=== PATIENT | female | born 1980 | race Caucasian/White ===

== ENCOUNTER 2016-12-11 10:28 | Emergency (ER) | payer SELFPAY ==
--- NOTE | 2016-12-11 10:54 | ER Document Report ---
ED Medical Screen (RME) - General Chief Complaint: Pain With Urination Stated Complaint: GROIN PAIN Time Seen by Provider: 12/11/16 10:48 Notes: has pain with urination and vaginal sores. Says one same sex partner for last two years with no variance. TRAVEL OUTSIDE OF THE [place] IN LAST 30 DAYS: No - Related Data Allergies/Adverse Reactions: Penicillins Allergy (Verified 12/11/16 10:33) Past Medical History - Social History Frequency of alcohol use: Occasional Drug Abuse: None Renal/ Medical History: Denies: Hx Peritoneal Dialysis GI Medical History: Reports: Hx Ulcer Past Surgical History: Reports: Hx Cholecystectomy - Immunizations Hx Diphtheria, Pertussis, Tetanus Vaccination: Yes Physical Exam - Vital signs Vitals: Temp Pulse Resp BP Pulse Ox 97.7 F 93 14 147/100 H 100 12/11/16 10:32 12/11/16 10:32 12/11/16 10:32 12/11/16 10:32 12/11/16 10:32 Course - Vital Signs Vital signs: Temp Pulse Resp BP Pulse Ox 97.7 F 93 14 147/100 H 100 12/11/16 10:32 12/11/16 10:32 12/11/16 10:32 12/11/16 10:32 12/11/16 10:32
[2016-12-11 11:10] LABS: APPEARANCE,URINE SLIGHTLY-CLOUDY; BILIRUBIN,URINE NEGATIVE (NEGATIVE); GLUCOSE, URINE NEGATIVE (NEGATIVE); KETONES,URINE NEGATIVE (NEGATIVE); LEUKOCYTE ESTERASE,URINE MODERATE (NEGATIVE); NITRITE,URINE NEGATIVE (NEGATIVE); PROTEIN,URINE NEGATIVE (NEGATIVE); URINE SPECIFIC GRAVITY 1.005; UROBILINOGEN,URINE NEGATIVE mg/dL (<2.0)
[2016-12-11] MEDS ORDERED: ACYCLOVIR 200 MG CAPSULE PO ONE (11:44)
[2016-12-11] MEDS ORDERED: HYDROCODONE/ACETAMINOPHEN 5-325 MG 6 TAB/DSPK PO PRN (11:49)
--- NOTE | 2016-12-11 11:53 | ER Document Report ---
ED GI/ - General Chief Complaint: Pain With Urination Stated Complaint: GROIN PAIN Time Seen by Provider: 12/11/16 10:48 Mode of Arrival: Ambulatory Information source: Patient Notes: 36-year-old female presented to ED for painful urination with vaginal sores. She states the pain with urination is because of the vaginal sores. She denies any discharge. She has a same sex partner for the last 2 years. States she has not had any outside encounters over the last 2 years. TRAVEL OUTSIDE OF THE [place] IN LAST 30 DAYS: No - HPI Patient complains to provider of: Vaginal pain, Other - Vaginal pain with urination due to the source. Onset: Other - Several days Quality of pain: Burning Severity at maximum: Moderate Severity in ED: Moderate Pain Level: 4 Vaginal bleeding (Compared to normal period): None Associated symptoms: Other - Burning with urination and sores to the vaginal wall and the perineum around the vaginal area Exacerbated by: Other - Palpation or urination Relieved by: Denies Similar symptoms previously: No Recently seen / treated by doctor: No - Related Data Allergies/Adverse Reactions: Penicillins Allergy (Verified 12/11/16 10:33) Past Medical History - General Information source: Patient - Social History Smoking Status: Current Every Day Smoker Cigarette use (# per day): Yes - Pack per day Chew tobacco use (# tins/day): No Smoking Education Provided: Yes - Less than 2 minutes Frequency of alcohol use: Occasional Drug Abuse: Marijuana Lives with: Family Family History: None. denies: Arthritis, CAD, COPD, CVA, DM, Hyperlipidemia, Hypertension, Malignancy, Thyroid Disfunction Patient has suicidal ideation: No Patient has homicidal ideation: No - Past Medical History Cardiac Medical History: Reports: None Pulmonary Medical History: Reports: None EENT Medical History: Reports: None Neurological Medical History: Reports: None Endocrine Medical History: Reports: None Renal/ Medical History: Reports: None Malignancy Medical History: Reports: None GI Medical History: Reports: Hx Ulcer Musculoskeltal Medical History: Reports None Skin Medical History: Reports None Psychiatric Medical History: Reports: None Traumatic Medical History: Reports: None Infectious Medical History: Reports: None Past Surgical History: Reports: Hx Cholecystectomy - Immunizations Hx Diphtheria, Pertussis, Tetanus Vaccination: Yes Review of Systems - Review of Systems Constitutional: No symptoms reported EENT: No symptoms reported Cardiovascular: No symptoms reported Respiratory: No symptoms reported Gastrointestinal: No symptoms reported Genitourinary: No symptoms reported Female Genitourinary: Other - Lesions to vaginal wall and perineum causing pain with urination Musculoskeletal: No symptoms reported Skin: No symptoms reported Hematologic/Lymphatic: No symptoms reported Neurological/Psychological: No symptoms reported -: Yes All other systems reviewed and negative Physical Exam - Vital signs Vitals: Temp Pulse Resp BP Pulse Ox 97.7 F 93 14 147/100 H 100 12/11/16 10:32 12/11/16 10:32 12/11/16 10:32 12/11/16 10:32 12/11/16 10:32 Interpretation: Normal - General General appearance: Appears well, Alert - HEENT Head: Normocephalic, Atraumatic Eyes: Normal Pupils: PERRL - Respiratory Respiratory status: No respiratory distress Chest status: Nontender Breath sounds: Normal Chest palpation: Normal - Cardiovascular Rhythm: Regular Heart sounds: Normal auscultation Murmur: No - Abdominal Inspection: Normal Distension: No distension Bowel sounds: Normal Tenderness: Nontender Organomegaly: No organomegaly - Genitourinary External exam: Lesions - The vaginal wall internal and external and the perineal area surrounding the vagina - Back Back: Normal, Nontender - Extremities General upper extremity: Normal inspection, Nontender, Normal color, Normal ROM , Normal temperature General lower extremity: Normal inspection, Nontender, Normal color, Normal ROM , Normal temperature, Normal weight bearing. No: Damian's sign - Neurological Neuro grossly intact: Yes Cognition: Normal Orientation: AAOx4 [place] Coma Scale Eye Opening: Spontaneous Skinny Coma Scale Verbal: Oriented Skinny Coma Scale Motor: Obeys Commands [place] Coma Scale Total: 15 Speech: Normal Motor strength normal: LUE, RUE, LLE, RLE Sensory: Normal - Psychological Associated symptoms: Normal affect, Normal mood - Skin Skin Temperature: Warm Skin Moisture: Dry Skin Color: Normal Course - Re-evaluation Re-evalutation: 12/11/16 12:57 Patient treated with acyclovir and given a [place] dispense pack for the discomfort. She was also sent home with a prescription for acyclovir. Patient and her partner was given instructions on genital herpes. - Vital Signs Vital signs: Temp Pulse Resp BP Pulse Ox 97.7 F 75 16 125/92 H 99 12/11/16 11:59 12/11/16 11:59 12/11/16 11:59 12/11/16 11:59 12/11/16 11:59 - Laboratory Laboratory results interpreted by me: 12/11/16 10:52 Urine Blood MODERATE H Ur Leukocyte Esterase MODERATE H Discharge - Discharge Clinical Impression: Genital herpes Qualifiers: Herpes simplex infection site: vulvovaginitis Qualified Code(s): A60.04 - Herpesviral vulvovaginitis Condition: Stable Disposition: HOME, SELF-CARE Instructions: Family Physicians / Practices Additional Instructions: Genital Herpes Your exam suggests that you have a herpes infection. A culture can confirm the diagnosis. Herpes is caused by a virus, and can be transmitted sexually. After the initial infection has healed, the virus often erupts at the same location from time to time. Herpes can be treated with anti-viral medication. The medicine can be used as pills or ointment. It's most effective if started with the first symptoms of the attack. It is not a "cure" -- it simply shortens the length of the illness. If this is not your first attack, the medicine may not help you. In the female, herpes can infect the baby as it passes through the canal, causing a life-threatening disease. You should inform the aviation survival technician that you've had herpes should you (or your spouse) become . Sexual contact should be avoided any time the sores are present, but the virus may be contagious even at other times. The use of condoms may help prevent infection in your partner. Acyclovir Acyclovir (Zovirax) is used to treat infections caused by the Herpes family of viruses. It's available as capsules or ointment. Zovirax is most effective if started at the first sign of the viral outbreak. It can decrease the severity and duration of symptoms. However, it doesn't eliminate the virus from the body completely. If you're prone to repeated outbreaks of herpes, you'll continue to have attacks. Apply ointment with a disposable glove or finger-cot to avoid spreading the virus with your finger. If pills have been prescribed, take them for the full recommended course. Occasionally, mild nausea or headaches may occur. Call the doctor if you develop wheezing, itching, rash, shortness of breath , or lightheadedness. Oral Narcotic Medication You have been given a norco disp pack for pain control. This medication is a narcotic. It's best taken with food, as nausea can result if taken on an empty stomach. Don't operate machinery or drive within six hours of taking this medication. Do not combine this medicine with alcohol, or with any medication which can cause sedation (such as cold tablets or sleeping pills) unless you get permission from the physician. Narcotics tend to cause constipation. If possible, drink plenty of fluids and eat a diet high in fiber and fruits. FOLLOW-UP CARE: If you have been referred to a physician for follow-up care, call the physician s office for an appointment as you were instructed or within the next two days. If you experience worsening or a significant change in your symptoms, notify the physician immediately or return to the Emergency Department at any time for re-evaluation. Prescriptions: Acyclovir [Acyclovir 400 mg Tablet] 400 mg PO TID #30 tablet Forms: Elevated Blood Pressure
[2016-12-11 12:02] VITALS: BP 125/92
== END 2016-12-11 12:02 | disposition home or self-care (01) ==
LOC: ER 10:28
DX: A60.04 Herpesviral vulvovaginitis (principal); R30.9 Painful micturition, unspecified; R10.30 Lower abdominal pain, unspecified; F17.210 Nicotine dependence, cigarettes, uncomplicated
CPT/HCPCS: 81001; 81025; 87086; 87088; 87186; 99283

== ENCOUNTER 2019-02-03 15:43 | Emergency (ER) | payer SELFPAY ==
[2019-02-03] MEDS ORDERED: ONDANSETRON 4 MG TAB.RAPDIS PO ONE (15:59)
--- NOTE | 2019-02-03 15:59 | ER Document Report ---
ED Medical Screen (RME) - General Chief Complaint: Abdominal Pain Stated Complaint: ABDOMINAL PAIN,VOMITING Time Seen by Provider: 02/03/19 15:56 Mode of Arrival: Wheelchair Information source: Patient Notes: 38-year-old female presents to ED for abdominal pain nausea and vomiting with 3 diarrhea stools since this morning. She is alert oriented respirations regular and unlabored speaking in full sentences. She states her pain is sharp at the highest level it can be constant. She states she does smoke marijuana 3 times a week alcohol weekly more than half a pack per day. She states she has had kidney problems no stones just bad infections. Last menstrual cycle was last week. I have greeted and performed a rapid initial assessment of this patient. A comprehensive ED assessment and evaluation of the patient, analysis of test results and completion of medical decision making process will be conducted by an additional ED providers. TRAVEL OUTSIDE OF THE [place] IN LAST 30 DAYS: No - Related Data Allergies/Adverse Reactions: Penicillins Allergy (Verified 12/11/16 10:33) Past Medical History Renal/ Medical History: Denies: Hx Peritoneal Dialysis GI Medical History: Reports: Hx Ulcer Past Surgical History: Reports: Hx Cholecystectomy - Immunizations Hx Diphtheria, Pertussis, Tetanus Vaccination: Yes Physical Exam - Vital signs Vitals: Temp Pulse Resp BP Pulse Ox 97.5 F 83 20 145/96 H 100 02/03/19 15:51 02/03/19 15:51 02/03/19 15:51 02/03/19 15:51 02/03/19 15:51 Course - Vital Signs Vital signs: Temp Pulse Resp BP Pulse Ox 97.5 F 83 20 145/96 H 100 02/03/19 15:51 02/03/19 15:51 02/03/19 15:51 02/03/19 15:51 02/03/19 15:51
[2019-02-03 16:53] LABS: HEMATOCRIT 50.8 % (36.0-47.0); HEMOGLOBIN 17.7 g/dL (12.0-15.5); MEAN CORPUSCULAR HEMOGLOBIN 41.5 pg (27.0-33.4); MEAN CORPUSCULAR HGB CONC 34.9 g/dL (32.0-36.0); PLATELET COUNT 544 10^3/uL (150-450); RED BLOOD COUNT 4.27 10^6/uL (3.72-5.28); RED CELL DISTRIBUTION WIDTH 14.7 % (11.5-14.0); WHITE BLOOD COUNT 13.4 10^3/uL (4.0-10.5)
[2019-02-03 17:14] LABS: ABSOLUTE LYMPHOCYTES# (MANUAL) 1.6 10^3/uL (0.5-4.7); ABSOLUTE MONOCYTES # (MANUAL) 0.8 10^3/uL (0.1-1.4); BAND NEUTROPHILS % (MANUAL) 1 % (3-5); BASOPHILS % (MANUAL) 2 % (0-2); EOSINOPHILS % (MANUAL) 2 % (0-6); LYMPHOCYTES % (MANUAL) 12 % (13-45); MONOCYTES % (MANUAL) 6 % (3-13); SEGMENTED NEUTROPHILS % (MAN) 77 % (42-78); TOTAL CELLS COUNTED 100
[2019-02-03 17:15] LABS: ANISOCYTOSIS SLIGHT; MEAN CORPUSCULAR VOLUME 119 fl (80-97); PLATELET COMMENT INCREASED
[2019-02-03 17:33] LABS: ALKALINE PHOSPHATASE 214 U/L (38-126); ANION GAP 11 (5-19); ASPARTATE AMINO TRANSFERASE 33 U/L (14-36); BILIRUBIN,DIRECT 0.4 mg/dL (0.0-0.4); BILIRUBIN,TOTAL 0.9 mg/dL (0.2-1.3); CALCIUM 9.8 mg/dL (8.4-10.2); CARBON DIOXIDE 25 mmol/L (22-30); CHLORIDE 107 mmol/L (98-107); GLUCOSE 110 mg/dL (75-110); POTASSIUM 4.6 mmol/L (3.6-5.0); TOTAL PROTEIN 7.6 g/dL (6.3-8.2)
[2019-02-03 17:39] LABS: BLOOD UREA NITROGEN < 2 mg/dL (7-20)
[2019-02-03] MEDS ORDERED: METOCLOPRAMIDE HCL INJ/PF 10 MG/2 ML SDV IV ONE (19:01)
[2019-02-03] MEDS ORDERED: FENTANYL CITRATE INJ/PF 100 MCG/2 ML AMPUL IV ONE (19:01)
[2019-02-03] MEDS ORDERED: RINGERS SOLUTION,LACTATED 1,000 ML IV ONE (19:05)
--- NOTE | 2019-02-03 19:05 | ER Document Report ---
ED General - General Chief Complaint: Abdominal Pain Stated Complaint: ABDOMINAL PAIN,VOMITING Time Seen by Provider: 02/03/19 15:56 Primary Care Provider: [facility] [NO LOCAL MD] - Follow up as needed Mode of Arrival: Wheelchair TRAVEL OUTSIDE OF THE [place] IN LAST 30 DAYS: No - HPI Notes: Patient presents with not feeling well having stomach cramps last night developing into worse sharp constant but waxing and waning abdominal pain in her left lower quadrant that migrates to her umbilicus. She is also had several bouts of vomiting nonbloody nonbilious and several soft stools. With no black or red in her stool. She denies any vaginal discharge or concern for vaginal infection or vaginal bleeding at this time. No known medical problems. She does states she smokes recreational marijuana approximately 3 times a week. She denies this ever happening before. She denies any chest pain or shortness of breath no known medical problems and otherwise does not take any medications on a daily basis. - Related Data Allergies/Adverse Reactions: Penicillins Allergy (Verified 12/11/16 10:33) Past Medical History - General Information source: Patient - Social History Smoking Status: Never Smoker Chew tobacco use (# tins/day): No Frequency of alcohol use: Occasional Drug Abuse: Marijuana Family History: None. denies: Arthritis, CAD, COPD, CVA, DM, Hyperlipidemia, Hypertension, Malignancy, Thyroid Disfunction Patient has suicidal ideation: No Patient has homicidal ideation: No Renal/ Medical History: Denies: Hx Peritoneal Dialysis GI Medical History: Reports: Hx Ulcer Past Surgical History: Reports: Hx Cholecystectomy, Hx Oral Surgery - [place] - Immunizations Hx Diphtheria, Pertussis, Tetanus Vaccination: Yes Review of Systems - Review of Systems Constitutional: No symptoms reported EENT: No symptoms reported Cardiovascular: No symptoms reported Respiratory: No symptoms reported Gastrointestinal: See HPI Genitourinary: No symptoms reported Female Genitourinary: No symptoms reported Musculoskeletal: No symptoms reported Skin: No symptoms reported Hematologic/Lymphatic: No symptoms reported Neurological/Psychological: No symptoms reported Physical Exam - Vital signs Vitals: Temp Pulse Resp BP Pulse Ox 97.5 F 83 20 145/96 H 100 02/03/19 15:51 02/03/19 15:51 02/03/19 15:51 02/03/19 15:51 02/03/19 15:51 - General General appearance: Alert In distress: Moderate - HEENT Head: Normocephalic, Atraumatic - Respiratory Respiratory status: No respiratory distress Chest status: Nontender Breath sounds: Normal Chest palpation: Normal - Cardiovascular Rhythm: Regular Heart sounds: Normal auscultation Murmur: No - Abdominal Inspection: Normal Distension: No distension Tenderness: Other - Mild tenderness umbilicus area as well as left lower quadrant - Back Back: Normal, Nontender - Neurological Neuro grossly intact: Yes Cognition: Normal Orientation: AAOx4 Course - Re-evaluation Re-evalutation: 02/03/19 20:07 Patient has mild leukocytosis otherwise within normal limits are nonsignificant. Patient's pain is been controlled with medications. She has not had any vomiting since Reglan administration. CT abdomen shows no acute ab normalities. I discussed with patient that she is having sharp spasming pain with soft stools and vomiting likely has viral gastroenteritis. However, I did provide return precautions if you develop any fevers or worsening symptoms or intractable vomiting to return to emergency department with the next 12 to 24 hours. She will be sent home with supportive care including Bentyl, Percocet, and Reglan. - Vital Signs Vital signs: Temp Pulse Resp BP Pulse Ox 97.4 F 83 20 145/96 H 100 02/03/19 18:39 02/03/19 15:51 02/03/19 15:51 02/03/19 15:51 02/03/19 15:51 - Laboratory Result Diagrams: 02/03/19 16:35 02/03/19 16:35 Laboratory results interpreted by me: 02/03/19 02/03/19 02/03/19 16:35 16:35 18:44 WBC 13.4 H Hgb 17.7 H Hct 50.8 H MCV 119 H MCH 41.5 H RDW 14.7 H Plt Count 544 H Band Neutrophils % 1 L Lymphocytes % (Manual) 12 L Abs Neuts (Manual) 10.5 H Abs Basophils (Manual) 0.3 H BUN < 2 L Alkaline Phosphatase 214 H Urine Ketones TRACE H Discharge - Discharge Clinical Impression: Nausea & vomiting Qualifiers: Vomiting type: unspecified Vomiting Intractability: non-intractable Qualified Code(s): R11.2 - Nausea with vomiting, unspecified Abdominal pain Qualifiers: Abdominal location: lower abdomen, unspecified Qualified Code(s): R10.30 - Lower abdominal pain, unspecified Condition: Good Disposition: HOME, SELF-CARE Instructions: Abdominal Pain ([facility]), Antispasmodics ([facility]), Reglan ([facility]), Vomiting ([facility]) Additional Instructions: If your symptoms worsen you are unable to keep down any fluids or develop any fevers please return the emergency department within the next 12 to 24 hours or sooner. Prescriptions: Dicyclomine HCl [Bentyl 20 mg Tablet] 20 mg PO ASDIR PRN #20 tablet PRN Reason: Oxycodone HCl/Acetaminophen [Percocet 10-325 Mg Tablet] 1 each PO ASDIR PRN #15 tablet PRN Reason: Metoclopramide HCl [Reglan 10 mg Tablet] 1 tab PO ASDIR PRN #15 tablet PRN Reason: [facility]: [facility] [NO [facility]AL MD] - Follow up as needed
[2019-02-03] MEDS ORDERED: MORPHINE SULFATE 10 MG/ML INJ IV ONE (19:46)
--- NOTE | 2019-02-03 19:50 | RADIOLOGY REPORT (SQ) ---
EXAM DESCRIPTION: CT ABD/PELVIS WITH IV ONLY COMPLETED DATE/TIME: 02/03/2019 7:38 pm REASON FOR STUDY: abd pain, umbilicus, LLQ, eval appy, etc COMPARISON: None. TECHNIQUE: CT scan of the abdomen and pelvis performed using helical scanning technique with dynamic intravenous contrast injection. No oral contrast. Images reviewed with lung, soft tissue, and bone w indows. Reconstructed coronal and sagittal MPR images reviewed. Delayed images for evaluation of the urinary system also acquired. All images stored on PACS. All CT scanners at this facility use dose modulation, iterative reconstruction, and/or weight based d osing when appropriate to reduce radiation dose to as low as reasonably achievable (ALARA). [facility]: Dose Right [facility]: CareDose [facility]: Dose Right [facility]: Teradose 4D [facility]: [employer] CONTRAST TYPE AND DOSE: 100 mL Isovue 370- low osmolar. RENAL FUNCTION: GFR > 60. RADIATION DOSE: CT Rad equipment meets quality standard of care and radiation dose reduction techniq ues were employed. CTDIvol: 4.8 - 4.9 mGy. DLP: 502 mGy-cm.. LIMITATIONS: None. FINDINGS: LOWER CHEST: No significant findings. LIVER: Normal size. No enhancing masses. No dilated ducts. SPLEEN: Normal size. No focal lesions. PANCREAS: No masses identified. No significant calcifications. No adjacent inflammation or peripancre atic fluid collections. Pancreatic duct not dilated. GALLBLADDER: No calcified stones. No inflammatory changes to suggest cholecystitis. ADRENAL GLANDS: No significant masses. RIGHT KIDNEY AND URETER: No cysts identified. No solid masses identified. No calcified stones. No hyd ronephrosis or hydroureter. LEFT KIDNEY AND URETER: No cysts identified. No solid masses identified. No calcified stones. No hydr onephrosis or hydroureter. AORTA AND VESSELS: No aneurysm. No dissection. Renal arteries, SMA, celiac without significant stenos is. RETROPERITONEUM: No bulky retroperitoneal adenopathy. BOWEL AND PERITONEAL CAVITY: No obstruction or inflammatory changes. No free fluid. APPENDIX: Normal. PELVIS: Trace free fluid. Unremarkable bladder. ABDOMINAL WALL: No masses. No hernias. BONES: No acute findings. OTHER: No other significant finding. IMPRESSION: NO ACUTE FINDINGS IN THE ABDOMEN OR PELVIS ON CT SCAN WITH IV CONTRAST. TECHNICAL DOCUMENTATION: JOB ID: [id number] Quality ID # [id number]: Final reports with documentation of one or more dose reduction techniques (e.g., Au tomated exposure control, adjustment of the mA and/or kV according to patient size, use of iterative reconstruction technique) 2010 [employer]- All Rights Reserved Reading location - IP/workstation name: [email or web address]
[2019-02-03] MEDS ORDERED: DICYCLOMINE HCL INJ 20 MG/2 ML AMPULE IM ONE (20:11)
[2019-02-03 20:14] LABS: APPEARANCE,URINE SLIGHTLY-CLOUDY; BILIRUBIN,URINE NEGATIVE (NEGATIVE); COLOR,URINE YELLOW; GLUCOSE, URINE NEGATIVE (NEGATIVE); KETONES,URINE TRACE mg/dL (NEGATIVE); PROTEIN,URINE NEGATIVE (NEGATIVE); URINE SPECIFIC GRAVITY 1.013; UROBILINOGEN,URINE NEGATIVE mg/dL (<2.0)
[2019-02-03 20:26] VITALS: BP 128/89
[2019-02-04 08:54] LABS: PATH REVIEW PATHOLOGIST REVIEWED
== END 2019-02-03 20:58 | disposition home or self-care (01) ==
LOC: ER 15:43
DX: R11.2 Nausea with vomiting, unspecified (principal); R10.30 Lower abdominal pain, unspecified; R10.32 Left lower quadrant pain
CPT/HCPCS: 36415; 83690; 84703; 85025; 80053; 81001; 74177; J0500; S0119; J3010; J2765; J2270; J7120

== ENCOUNTER 2019-04-21 11:26 | Emergency (ER) | payer SELFPAY ==
--- NOTE | 2019-04-21 11:53 | ER Document Report ---
ED Medical Screen (RME) - General Chief Complaint: Leg Swelling Stated Complaint: LEG SWELLING Time Seen by Provider: 04/21/19 11:46 Mode of Arrival: Ambulatory Information source: Patient Notes: 38-year-old female with no prior history presents emergency department with complaints of extreme bilateral leg swelling for the past week. Reports she smokes and drinks daily but denies past medical history. Denies recent trip recent antibiotics. Reports last week her boss went on vacation so she spent the week in bed watching Netflix. She reports that her legs started swelling this week to an extreme. She reports when she wakes up with her ankle are swollen but by the end of the day both legs are swollen the thighs are triple their size. She also complains of palpitations shortness of breath. I have greeted and performed a rapid initial assessment of this patient. A comprehensive ED assessment and evaluation of the patient, analysis of test results and completion of the medical decision making process will be conducted by additional ED providers. TRAVEL OUTSIDE OF THE [place] IN LAST 30 DAYS: No - Related Data Allergies/Adverse Reactions: Penicillins Allergy (Verified 12/11/16 10:33) Past Medical History Renal/ Medical History: Denies: Hx Peritoneal Dialysis GI Medical History: Reports: Hx Ulcer Past Surgical History: Reports: Hx Cholecystectomy, Hx Oral Surgery - [place] teeth - Immunizations Hx Diphtheria, Pertussis, Tetanus Vaccination: Yes Physical Exam - Vital signs Vitals: Temp Pulse Resp BP Pulse Ox 97.8 F 108 H 16 113/57 L 99 04/21/19 11:38 04/21/19 11:38 04/21/19 11:38 04/21/19 11:38 04/21/19 11:38 Course - Vital Signs Vital signs: Temp Pulse Resp BP Pulse Ox 97.8 F 108 H 16 113/57 L 99 04/21/19 11:38 04/21/19 11:38 04/21/19 11:38 04/21/19 11:38 04/21/19 11:38
--- NOTE | 2019-04-21 12:47 | RADIOLOGY REPORT (SQ) ---
EXAM DESCRIPTION: CHEST 2 VIEWS COMPLETED DATE/TIME: 04/21/2019 12:30 pm REASON FOR STUDY: palpitations sob COMPARISON: None. EXAM PARAMETERS: NUMBER OF VIEWS: two views TECHNIQUE: Digital Frontal and Lateral radiographic views of the chest acquired. RADIATION DOSE: NA LIMITATIONS: none FINDINGS: LUNGS AND PLEURA: No opacities, masses or pneumothorax. No pleural effusion. MEDIASTINUM AND HILAR STRUCTURES: No masses or contour abnormalities. HEART AND VASCULAR STRUCTURES: Heart normal size. No evidence for failure. BONES: No acute findings. HARDWARE: None in the chest. OTHER: No other significant finding. IMPRESSION: NO ACUTE RADIOGRAPHIC FINDING IN THE CHEST. TECHNICAL DOCUMENTATION: JOB ID: [id number] [employer]- All Rights Reserved Reading location - IP/workstation name: [email or web address]
[2019-04-21 12:49] LABS: ABSOLUTE EOSINOPHILS # (AUTO) 0.2 10^3/uL (0.0-0.6); ABSOLUTE MONOCYTES (AUTO) 1.3 10^3/uL (0.1-1.4); ABSOLUTE NEUT (AUTO) 8.4 10^3/uL (1.7-8.2); BASOPHILS % (AUTO) 0.3 % (0-2); EOSINOPHILS % (AUTO) 1.9 % (0-6); HEMATOCRIT 39.6 % (36.0-47.0); HEMOGLOBIN 13.7 g/dL (12.0-15.5); LYMPHOCYTES % (AUTO) 16.6 % (13-45); MEAN CORPUSCULAR HEMOGLOBIN 42.7 pg (27.0-33.4); MEAN CORPUSCULAR HGB CONC 34.7 g/dL (32.0-36.0); MONOCYTES % (AUTO) 10.9 % (3-13); PLATELET COUNT 434 10^3/uL (150-450); RED BLOOD COUNT 3.22 10^6/uL (3.72-5.28); RED CELL DISTRIBUTION WIDTH 15.7 % (11.5-14.0); SEGMENTED NEUTROPHILS % (AUTO) 70.3 % (42-78); TOTAL CELLS COUNTED % (AUTO) 100 %; WHITE BLOOD COUNT 11.9 10^3/uL (4.0-10.5)
[2019-04-21 13:00] LABS: MEAN CORPUSCULAR VOLUME 123 fl (80-97)
[2019-04-21 13:15] LABS: ALBUMIN 3.4 g/dL (3.5-5.0); ALKALINE PHOSPHATASE 193 U/L (38-126); ANION GAP 11 (5-19); ASPARTATE AMINO TRANSFERASE 43 U/L (14-36); BILIRUBIN,DIRECT 0.4 mg/dL (0.0-0.4); BILIRUBIN,TOTAL 1.3 mg/dL (0.2-1.3); BLOOD UREA NITROGEN 2 mg/dL (7-20); CALCIUM 9.3 mg/dL (8.4-10.2); CARBON DIOXIDE 25 mmol/L (22-30); CHLORIDE 102 mmol/L (98-107); GLUCOSE 96 mg/dL (75-110); TOTAL PROTEIN 6.8 g/dL (6.3-8.2)
[2019-04-21 13:24] LABS: PLATELET CLUMPS PRESENT; PLATELET COMMENT ADEQUATE; POLYCHROMASIA SLIGHT; TOXIC GRANULATION SLIGHT
[2019-04-21 13:30] LABS: ERYTHROCYTE SEDIMENTATION RATE 7 mm/hr (0-20)
[2019-04-21 13:34] LABS: APPEARANCE,URINE CLOUDY; BILIRUBIN,URINE NEGATIVE (NEGATIVE); COLOR,URINE DARK YELLOW; GLUCOSE, URINE NEGATIVE (NEGATIVE); KETONES,URINE NEGATIVE (NEGATIVE); LEUKOCYTE ESTERASE,URINE NEGATIVE (NEGATIVE); NITRITE,URINE NEGATIVE (NEGATIVE); PROTEIN,URINE NEGATIVE (NEGATIVE); URINE SPECIFIC GRAVITY 1.016
--- NOTE | 2019-04-21 14:31 | RADIOLOGY REPORT (SQ) ---
EXAM DESCRIPTION: VENOUS UNILATERAL LOWER COMPLETED DATE/TIME: 04/21/2019 2:20 pm REASON FOR STUDY: nicholas leg swelling l>r COMPARISON: None. TECHNIQUE: Dynamic and static bolden scale and color images acquired of the left leg venous system. Se lected spectral images acquired with additional compression and augmentation maneuvers. The contralat eral common femoral vein and saphenofemoral junction were also imaged. Images stored on PACS. LIMITATIONS: None. FINDINGS: COMMON FEMORAL: Normal phasicity, compression and augmentation. No visualized echogenic ma terial on bolden scale. No defects on color images. FEMORAL: Normal compression and augmentation. No visualized echogenic material on bolden scale. No defe cts on color images. POPLITEAL: Normal compression, augmentation. No visualized echogenic material on bolden scale. No defec ts on color images. CALF VESSELS: Normal compression, augmentation. No visualized echogenic material on bolden scale. No de fects on color images. GSV and SSV: Normal compression, augmentation. No visualized echogenic material on bolden scale. No def ects on color images. ANY DEEP VENOUS INSUFFICIENCY: Not evaluated. ANY EVIDENCE OF POPLITEAL CYST: No. OTHER: No other significant finding. CONTRALATERAL COMMON FEMORAL VEIN AND SAPHENOFEMORAL JUNCTION: Normal phasicity, compression and augmentation. No visualized echogenic material on bolden scale. No de fects on color images. IMPRESSION: NO EVIDENCE DVT OR SVT IN THE LEFT LEG. TECHNICAL DOCUMENTATION: JOB ID: [id number] [employer]- All Rights Reserved Reading location - IP/workstation name: [email or web address]
[2019-04-21] MEDS ORDERED: NORMAL SALINE 1000 ML 1,000 ML IV ONE (14:35)
--- NOTE | 2019-04-21 14:42 | ER Document Report ---
ED General - General Chief Complaint: Leg Swelling Stated Complaint: LEG SWELLING Time Seen by Provider: 04/21/19 11:46 Primary Care Provider: [facility] [Provider Group] - Follow up in 3-5 days FRANK OLGUIN MD [COMMUNITY BASED STAFF] - Follow up in 3-5 days Mode of Arrival: Ambulatory Notes: 38-year-old female presents with bilateral lower leg swelling mostly on left, heart racing, and shortness of breath for the past week. Patient states her leg swelling is worse when she is at work and she has been on her feet all day. Patient states it is better with elevating her legs. Patient states for the last week she has been at home watching [employer] due to her boss being at a convention. Patient works in construction. Patient denies any past medical history of anything. Patient denies any recent long distance travel, recent hospitalizations, recent surgeries, control/estrogen use, personal history of cancer. Patient states she also had one episode of dizziness with it. Patient also states the back of her left calf feels a little sore. TRAVEL OUTSIDE OF THE [place] IN LAST 30 DAYS: No - Related Data Allergies/Adverse Reactions: Penicillins Allergy (Verified 12/11/16 10:33) Past Medical History - General Information source: Patient - Social History Smoking Status: Current Every Day Smoker Chew tobacco use (# tins/day): No Frequency of alcohol use: Occasional Drug Abuse: Marijuana Family History: None. denies: Arthritis, CAD, COPD, CVA, DM, Hyperlipidemia, Hypertension, Malignancy, Thyroid Disfunction Patient has suicidal ideation: No Patient has homicidal ideation: No Renal/ Medical History: Denies: Hx Peritoneal Dialysis GI Medical History: Reports: Hx Ulcer Past Surgical History: Reports: Hx Cholecystectomy, Hx Oral Surgery - [place] teeth - Immunizations Hx Diphtheria, Pertussis, Tetanus Vaccination: Yes Review of Systems - Review of Systems Notes: Constitutional: Negative for fever. HENT: Negative for sore throat. Eyes: Negative for visual changes. Cardiovascular: Positive for palpitations. Negative for chest pain. Respiratory: Positive for shortness of breath. Gastrointestinal: Negative for abdominal pain, vomiting or diarrhea. Genitourinary: Negative for dysuria. Musculoskeletal: Positive for leg swelling. Negative for back pain. Skin: Negative for rash. Neurological: Negative for headaches, weakness or numbness. 10 point ROS negative except as marked above and in HPI. Physical Exam - Vital signs Vitals: Temp Pulse Resp BP Pulse Ox 97.8 F 108 H 16 113/57 L 99 04/21/19 11:38 04/21/19 11:38 04/21/19 11:38 04/21/19 11:38 04/21/19 11:38 - Notes Notes: GENERAL: Well-appearing, well-nourished and in no acute distress. HEAD: Atraumatic, normocephalic. EYES: Pupils equal round and reactive to light, extraocular movements intact, sclera anicteric, conjunctiva are normal. ENT: TMs normal, nares patent, oropharynx clear without exudates. Moist mucous membranes. NECK: Normal range of motion, supple without lymphadenopathy or JVD. LUNGS: Breath sounds clear to auscultation bilaterally and equal. No wheezes rales or rhonchi. HEART: Regular rate and rhythm without murmurs, rubs or gallops. EXTREMITIES: Mild swelling noted to left ankle. No tenderness to calf. Normal range of motion, no pitting or edema. No clubbing or cyanosis. Distal pedal pulses 2+. NEUROLOGICAL: Cranial nerves II through XII grossly intact. Normal speech, normal gait. PSYCH: Normal mood, normal affect. SKIN: Warm, Dry, normal turgor, no rashes or lesions noted. Course - Re-evaluation Re-evalutation: 04/21/19 38-year-old female presents with lower leg swelling, palpitations, and dyspnea. Patient states she is a smoker. This is been intermittent for the last week. It is worse when she has been standing on her feet all day and better with elevation. Patient states for the last week she has been at home watching [employer] due to her boss being at a convention. Work-up was initiated including ultrasound of left lower extremity which was negative for DVT. EKG showed no ST elevation and showed sinus tachy. CK was added to rule out rhabdo. TSH was added due to palpitations. D-dimer was added to rule out PE. 04/21/19 14:43 TSH was within normal limits. CK was negative. D-dimer was negative. Discussed all results with patient. Patient's chest x-ray shows a normal heart with no fluid overload. Patient given close follow-up with PCP. Strict return precautions given. Patient voices understanding and agrees with plan of care. - Vital Signs Vital signs: Temp Pulse Resp BP Pulse Ox 98.1 F 93 16 136/79 H 99 04/21/19 17:45 04/21/19 17:45 04/21/19 17:45 04/21/19 17:45 04/21/19 17:45 - Laboratory Result Diagrams: 04/21/19 12:30 04/21/19 12:30 Laboratory results interpreted by me: 04/21/19 04/21/19 04/21/19 12:30 12:30 12:30 WBC 11.9 H RBC 3.22 L MCV 123 H MCH 42.7 H RDW 15.7 H Absolute Neuts (auto) 8.4 H BUN 2 L AST 43 H Alkaline Phosphatase 193 H Creatine Kinase < 20 L Albumin 3.4 L Urine Urobilinogen Urine Ascorbic Acid 04/21/19 13:05 WBC RBC MCV MCH RDW Absolute Neuts (auto) BUN AST Alkaline Phosphatase Creatine Kinase Albumin Urine Urobilinogen 2.0 H Urine Ascorbic Acid 20 H Discharge - Discharge Clinical Impression: Leg swelling Condition: Stable Disposition: HOME, SELF-CARE Additional Instructions: Your work-up today was reassuring. Your ultrasound of your leg shows no blood clots. Your chest x-ray shows no fluid on your lungs or enlarged heart. It also does not show any collapsed lung or pneumonia. Your lab work including cardiac enzymes are negative. Please follow-up with your primary care doctor in 3 to 5 days. Return to ER for any worsening symptoms, including increased leg swelling, shortness of breath, chest pain, dizziness, nausea/vomiting, passing out, abdominal pain, or any other symptoms that are concerning to you. Forms: Return to Work Referrals: FRANK OLGUIN MD [COMMUNITY BASED STAFF] - Follow up in 3-5 days [facility] [Provider Group] - Follow up in 3-5 days
--- NOTE | 2019-04-21 15:40 | EKG REPORT ---
SEVERITY:- BORDERLINE ECG - SINUS TACHYCARDIA PROBABLE LEFT ATRIAL ABNORMALITY BORDERLINE PROLONGED QT INTERVAL : Confirmed by: Coty Rabago MD 21-Apr-2019 15:39:27
[2019-04-21 17:48] VITALS: BP 136/79
[2019-04-22 08:54] LABS: PATH REVIEW PATHOLOGIST REVIEWED
== END 2019-04-21 17:44 | disposition home or self-care (01) ==
LOC: ER 11:26
DX: M25.472 Effusion, left ankle (principal); M79.89 Other specified soft tissue disorders; R00.2 Palpitations; R06.02 Shortness of breath; R42 Dizziness and giddiness; F12.10 Cannabis abuse, uncomplicated; F17.200 Nicotine dependence, unspecified, uncomplicated; Z88.0 Allergy status to penicillin
CPT/HCPCS: 93005; 99284; 96360; 36415; 82550; 84443; 85025; 85652; 80053; 81001; 84484; 85379; 93971; 71046; 93010; J7030